=== PATIENT | female | born 2000 | race African-American/Black ===

== ENCOUNTER 2024-05-23 23:54 | Emergency (ER) | payer SELFPAY ==
[~2024-05-23] VITALS: Ht 160 cm; Wt 101.2 kg
[2024-05-24 00:09] VITALS: BP_SYST 150; PULSE 152; RESP 16; TEMP 98.3; O2SAT 100
[2024-05-24] MEDS: NACL 0.9% 1,000 ML IV ONE (00:47)
[2024-05-24 01:10] LABS: BASOPHILS % (AUTO) 0.3 % (0.0-2.0); EOSINOPHILS % (AUTO) 0.1 % (0.0-4.0); HEMATOCRIT 37.8 % (36-48); HEMOGLOBIN 13.1 g/dL (12.0-16.0); LYMPHOCYTES # (AUTO) 2.1 K/uL (1.0-5.5); LYMPHOCYTES % (AUTO) 21.2 % (20.5-51.5); MEAN CORPUSCULAR HEMOGLOBIN 31 pg (27-31); MEAN CORPUSCULAR HGB CONC 35 % (32-36); MEAN CORPUSCULAR VOLUME 90 fL (79.0-98.0); MONOCYTES # (AUTO) 0.4 K/uL (0.0-1.0); MONOCYTES % (AUTO) 4.1 % (1.7-9.3); NEUTROPHILS # (AUTO) 7.5 K/uL (1.8-7.7); NEUTROPHILS % (AUTO) 74.3 % (40.0-70.0); PLATELET COUNT (AUTO) 257 K/uL (130-430); RED BLOOD CELL COUNT(AUTO) 4.22 MIL/uL (4.2-6.2); RED CELL DISTRIBUTION WIDTH 13.1 % (9.0-15.0); WHITE BLOOD COUNT (AUTO) 10.1 K/uL (4.8-10.8)
[2024-05-24] MEDS ORDERED: IBUP-1971 PO (01:32)
[2024-05-24] MEDS ORDERED: MEDR10TA72 PO (01:32)
[2024-05-24 01:45] LABS: BILIRUBIN,URINE NEGATIVE (NEGATIVE); BLOOD, URINE 3+ (NEGATIVE); CLARITY/URINE CLOUDY (CLEAR); GLUCOSE,URINE TRACE (NEGATIVE); KETONES,URINE 1+ (NEGATIVE); LEUKOCYTE ESTERASE ,URINE 2+ (NEGATIVE); NITRITE, URINE POSITIVE (NEGATIVE); PROTEIN URINE 3+ (NEGATIVE)
[2024-05-24 01:48] LABS: COLOR,URINE REDDISH (YELLOW)
[2024-05-24 02:02] LABS: RBC,URINE >100 /HPF (0-3)
[2024-05-24 02:03] LABS: WBC,URINE NONE SEEN /HPF (0-3)
[2024-05-24 02:04] LABS: BACTERIA,URINE None Seen /HPF (None Seen)
[2024-05-24 02:14] VITALS: BP_SYST 116; PULSE 134; RESP 16; TEMP 98; O2SAT 99
== END 2024-05-24 02:14 | disposition home or self-care (01) ==
LOC: SED 23:54
DX: N93.8 Other specified abnormal uterine and vaginal bleeding (principal); R10.30 Lower abdominal pain, unspecified; R03.0 Elevated blood-pressure reading, without diagnosis of hypertension; F17.210 Nicotine dependence, cigarettes, uncomplicated; Z79.899 Other long term (current) drug therapy; Z79.2 Long term (current) use of antibiotics
CPT/HCPCS: 99283; 81001; 85025; 87086; 36415; 81025; 96360; J7030; 81000; 81015